=== PATIENT | male | born 1990 | race Two or more races ===

== ENCOUNTER 2017-01-13 22:15 | Emergency (ER) | payer OTHER ==
[2017-01-14 01:17] VITALS: BP 128/65
== END 2017-01-14 01:00 | disposition home or self-care (01) ==
LOC: ED 22:15
DX: R07.89 Other chest pain (principal); R05 Cough; F41.9 Anxiety disorder, unspecified; F32.9 Major depressive disorder, single episode, unspecified; K21.9 Gastro-esophageal reflux disease without esophagitis

== ENCOUNTER 2018-06-27 14:59 | Inpatient (IN) | payer OTHER ==
[~2018-06-27] VITALS: Ht 182.9 cm; Wt 77.1 kg
--- NOTE | 2018-06-27 15:24 | NUR ---
PT WAS BROUGHT IN BY AMBULANCE. C/O OVERDOSE AND ALOC. MEDIC WAS TOLD THAT THE PT IS GOING THROUGH A DIVORCE AND THAT HE IS NOT DEALING WITH IT WELL. THE PT WAS SUPPOSE TO GO TO A COURT DATE TODAY BUT WAS NOT INFORMED OF THE COURT DATE. SINCE THE PT DID NOT SHOW FOR THE COURT DATE THEY WERE TOLD HE LOST HIS CHILDREN. MEDIC ALSO WAS INFORMED THAT HE IS A VET. MEDIC STS THAT THE PT VOMITED GREEN LIQUID AND IT HAD PILL FRAGMENTS IN THE EMESIS. PT OBEYS COMMANDS WHEN TOLD TO MOVE CERTAIN BODY PARTS. PT WAS ABLE TO VERBALLY STATE THAT HE TOOK HYDROCODONE AND SIMBALTA. PT IS LAYING ON GURNEY WITH EYES CLOSED, MOUTH OPEN AND RESP E/U. VSS. WILL CONTINUE TO MONITOR.
[2018-06-27 15:46] LABS: BASOPHIL % 0.4 % (0-2); PLATELET COUNT 209 x10^3mcL (130-400)
[2018-06-27 15:48] LABS: CALCIUM 8.5 mg/dL (8.5-10.1); CARBON DIOXIDE 25.2 mmol/L (21-32); CHLORIDE SERUM 101 mmol/L (98-107); GFR1 > 60 mL/min; GLUCOSE SERUM 151 mg/dL (74-106); POTASSIUM SERUM 3.5 mmol/L (3.5-5.1); SODIUM SERUM 138 mmol/L (136-145)
[2018-06-27 16:00] LABS: ALBUMIN 3.8 g/dL (3.4-5.0); ALKALINE PHOSPHATASE 85 U/L (46-116); ALT/SGPT 64 U/L (16-63); AST/SGOT 68 U/L (15-37); BILIRUBIN TOTAL 0.46 mg/dL (0.20-1.00); T4(THYROXINE) 8.3 ug/dL (4.7-13.3); TOTAL PROTEIN, SERUM 7.1 g/dL (6.4-8.2)
--- NOTE | 2018-06-27 16:13 | NUR ---
PT SLEEPING ON GURNEY IN UPRIGHT POSITION. VSS. RESPS E/U. PT IN DIRECT VIEW OF NURSES' STATION.
--- NOTE | 2018-06-27 16:37 | NUR ---
PT ASLEEP ON GURNEY. PT RESPONDS TO VERBAL COMMANDS. VSS. WILL CONTINUE TO MONITOR.
--- NOTE | 2018-06-27 16:52 | NUR ---
PT WAS AROUSABLE WITH STERNAL RUB AND THEN VERBAL STIMULATION. PT WAS INSTRUCTED TO USE THE URNAL AND WAS ATTEMPTING TO USE THE RESTROOM. PT WAS UNABLE AT THIS TIME TO PRODUCE URINE. PT WAS SPEAKING WITH SLOW SPEECH BUT ABLE TO GUERO COMMANDS. VSS. WILL CONTINUE TO MONITOR.
--- NOTE | 2018-06-27 17:52 | NUR ---
DR. HORVATH MADE AWARE OF DECREASE IN BP READING. 1L NS @150MLS/HR MAINTENANCE FLUID VERBALLY ORDERED BY DR. HORVATH.
--- NOTE | 2018-06-27 18:17 | NUR ---
1L NS CURRENTLY INFUSING AT BOLUS RATE INSTEAD OF MAINTENANCE RATE ORDERED BY DR. HORVATH.
[2018-06-27 18:31] LABS: CHOLESTEROL/HDL RATIO 4.7
--- NOTE | 2018-06-27 18:33 | NUR ---
PCXR IN PROGRESS.
--- NOTE | 2018-06-27 18:41 | NUR ---
SPOKE W/GÉNESIS FROM POISON CONTROL AND SHE RECOMMENDED PT BE PLACED ON MUCOMIST UNTIL TYLENOL AND AST/ALT LEVELS RETURN TO NORMAL RANGE. SHE ALSO RECOMMENDED REPEAT EKG AND IF QTC LEVELS ARE ABOVE 500, TO HAVE MAGNESIUM ADMINISTERED. SINCE THERE IS NO TIME OF INGESTED GIVEN BY MEDICS OR PT'S PARENTS, PT IS TO CONTINUE BEING MONITORED W/ROLL WINDER AND SYMPTOMS TREATED PRN. DR. HORVATH MADE AWARE.
--- NOTE | 2018-06-27 18:50 | NUR ---
REPORT GIVEN TO RAJ TYLER TO ASSUME CARE OF PT.
--- NOTE | 2018-06-27 18:52 | NUR ---
SPOKE TO DR. CAPUTO. MADE AWARE OF POISON CONTROL'S RECOMMENDATIONS.
--- NOTE | 2018-06-27 18:58 | NUR ---
RECEIVED PT VIA GUERNEY FROM E/D, ACCOMPANIED BY RN AND TRANSPORTER. PT LETHARGIC, RESPONDS TO PAINFUL STIMULI ONLY, UNABLE TO GIVE HISTORY, TOTALLY DEPENDENT AT THIS TIME. ON TELE # 7, NSR, NO S/S CHEST PAIN OR DISCOMFORT. NO RESPIRATORY DISTRESS NOTED. UTD LAST BM. IV SITE LAC 18, CDI. UNABLE TO ORIENT PT ON ANYTHING. SIDE RAILS UP X 2, BED IN LOW POSITION, SITTER BY BEDSIDE. WILL ENDORSE TO RAJ VALERO.
--- NOTE | 2018-06-27 19:09 | NUR ---
ARRIVED FROM ED AT 1857. EYES CLOSED, STARTLES AND MUMBLES TO PAINFUL STIMULI. IV SITE TO LAC PATENT, CDI. NO SIGNS OF DISCOMFORT. NO FAMILY PRESENT. 1:1 SITTER IN ROOM. VS'S STABLE. TEMP 97, HR 78, RR 20, BP 102/70, O2 SAT ON RA 97%. TELE # 7 SR 70.
--- NOTE | 2018-06-27 19:45 | NUR ---
PT IS SEDATED AND FLACID. PT OPENS DIANNA EYES WITH STERNAL RUB BUT IMMEDIATELY CLOSES THEM. ON TELE #7, NSR. FLACID EXTREMITIES. PULSES PRESENT IN ALL EXTREMITIES. LUNGS CLEAR IN ALL FEILDS. ON RA, EQUAL CHEST RISE AND FALL. NO SIGN OF RESP DISTRESS. SKIN WARM AND INTACT. IV ON LAC, INTACT AND PATENT. BED AT LOWEST SETTING. SITTER AT BEDSIDE. SIDE RAILS UP x2 FOR PT SAFETY. WILL CONTINUE TO MONITOR.
--- NOTE | 2018-06-27 20:10 | NUR ---
CALL PHARMACY TO CONFIRM ACETADOTE SCHEDULES AND DOSE. CONSULTED AM CHARGE NURSE AND PM CHARGE NURSE. PHARM BOOK WAS ALSO READ TO CONFIRM OK TO HANG MEDICATION. ALL CHECKED WELL. MEDICATION BROUGHT UP WITH GENERAL OPERATOR. MEDICATION HUNG PER EMAR. CALLED MD GALLEGOS ABOUT CHANGING PT DIET FROM REG TO NPO D/T PT BEING SEDATED. PT TO INPUT ORDERS. WILL CONTINUE TO [facility].
[2018-06-27 20:32] VITALS: BP 102/70
--- NOTE | 2018-06-27 22:23 | NUR ---
SPOKE WITH MD GALLEGOS REGARDING FLUIDS AND IV MEDICATION. PER MD WILL HOLD FLUIDS FOR NOW UNTIL IV MEDICATION IS COMPLETED.
[2018-06-27 22:31] VITALS: BP 98/51
--- NOTE | 2018-06-28 01:31 | NUR ---
PT RESTING IN BED. MORE ACTIVE THAN HE WAS WHEN HE WAS ADMITTED. STILL VERY SLEEPY BUT GRUNTS WITH TACTILE STIMULI. PT WITHDRAWLS FROM TOUCH AND COVERS HIS FACE WITH A BLANKET. STILL HAS NOT SPOKEN A WORD. FULL ROM ON BUE NOTED. BED AT LOWEST SETTING. CALL LIGHT WITHIN REACH. SITTER IN ROOM. WILL CONTINUE TO MONITOR.
[2018-06-28 06:06] VITALS: BP 92/49
[2018-06-28 06:15] LABS: BASOPHIL % 0.6 % (0-2); PLATELET COUNT 195 x10^3mcL (130-400); RED CELL DISTRIBUTION WIDTH 14.5 % (11.5-14.5)
[2018-06-28 06:30] LABS: CALCIUM 8.9 mg/dL (8.5-10.1); CARBON DIOXIDE 26.4 mmol/L (21-32); CHLORIDE SERUM 103 mmol/L (98-107); CREATININE SERUM 0.8 mg/dL (0.7-1.3); GFR1 > 60 mL/min; GLUCOSE SERUM 107 mg/dL (74-106); POTASSIUM SERUM 3.6 mmol/L (3.5-5.1); SODIUM SERUM 139 mmol/L (136-145)
--- NOTE | 2018-06-28 06:50 | NUR ---
PT IS RESTING IN BED WITH BOTH EYES CLOSED. BREATHING EVEN AND UNALBORED. PT IS STILL VERY DROWSY AND IS ABLE TO BE AROUSED VIA TACTILE STIMULI. PT UNABLE TO FOLLOW COMMANDS AT THIS TIME. ACETADOTE RUNNING AT 65ML. IV SITE CDI. MD GALLEGOS MADE AWARE OF LABS REQUESTED BY POISON CONTROL AND ALSO INFORMED MD ABOUT LOW B/P (). MD TO ORDER LABS AND NO NEW ORDERS GIVEN FOR FOR LOW B/P. SITTER AT BEDSIDE. NO ACUTE EVENT OCCURED AT NIGHT. BED AT LOWEST SETTING. CALL LIGHT WITHIN REACH. WILL ENDORSE TO AM NURSE.
--- NOTE | 2018-06-28 07:30 | NUR ---
RECEIVED PT IN NO ACUTE DISTRESS. SLEEPING, AROUSABLE BY TACTILE STIMULUS. RESP EVEN AND UNLABORED ON RA. IV TO LAC, NO REDNESS OR SWELLING NOTED. ACETADOTE INFUSING AT 65 ML/HR. 1:1 SITTER AT BEDSIDE. SAFETY, FALL AND ASPIRATION PRECAUTIONS IN PLACE. BED IN LOW POSITION, CALL LIGHT WITHIN REACH. WILL CONTINUE TO MONITOR.
[2018-06-28 08:31] VITALS: BP 102/49
--- NOTE | 2018-06-28 08:38 | NUR ---
PT'S MOTHER AT BEDSIDE, UPDATED WITH PLAN OF CARE. PT AROUSABLE TO TACTILE STIMULUS AND GESTURES TO MAKE NEEDS KNOWN AT THIS TIME. 1:1 SITTER AT BEDSIDE. WILL CONTINUE TO MONITOR.
[2018-06-28 09:56] VITALS: Ht 182.9 cm; Wt 77.1 kg
--- NOTE | 2018-06-28 12:23 | NUR ---
PT RESTING IN BED. NO ACUTE DISTRESS. BREATHING EVEN AND UNLABORED ON RA. DROWSY BUT AROUSABLE TO TACTILE STIMULUS. 1:1 SITTER AT BEDSIDE. CALL LIGHT WITHIN REACH. WILL CONTINUE TO MONITOR.
[2018-06-28 12:42] VITALS: BP 105/67
--- NOTE | 2018-06-28 12:53 | NUR ---
SPOKE WITH CRYSTAL FROM POISON CONTROL. CRYSTAL GAVE RECOMMENDATION TO DRAW HEPATIC FUNCTION PROFILE AND ACETAMINOPHEN LEVELS 1 HOUR PRIOR TO ACETADOTE IV INFUSION IS FINISHED AND REPEAT EKG. CRYSTAL ALSO STATED IF ACETAMINOPHEN LEVELS REMAIN ABOVE 10 OR IF LFT'S WORSEN, ANOTHER DOSE OF ACETADOTE IV RUNNING FOR 16 HRS IS NEEDED[address] WILL NOTIFY DR. SANTOS.
[2018-06-28 13:23] LABS: microscopic required? NO
[2018-06-28 13:50] LABS: AMPHETAMINE QUAL UR NONE DETECTED (See below)
[2018-06-28 13:54] LABS: UA SPECIFIC GRAVITY >=1.030 (1.005-1.035); urine erythrocyte NEGATIVE (NEGATIVE)
--- NOTE | 2018-06-28 14:13 | NUR ---
PT RESTING IN BED. NO ACUTE DISTRESS. PT MORE AWAKE, RESPONDS TO VERBAL STIMULUS. TALKING ON THE PHONE WITH FAMILY MEMBERS AT THIS TIME. 1:1 SITTER AT BEDSIDE. CALL LIGHT WITHIN REACH. WILL CONTINUE TO MONITOR.
[2018-06-28 16:41] VITALS: BP 97/58
[2018-06-28 18:23] LABS: BILIRUBIN DIRECT 0.1 mg/dL (0.0-0.2); BILIRUBIN TOTAL 0.3 mg/dL (0.20-1.00)
--- NOTE | 2018-06-28 18:24 | NUR ---
PT RESTING IN BED. NO ACUTE DISTRESS. SLEEPING BUT AROUSABLE. RESP EVEN AND UNLABORED ON RA. 1:1 SITTER AT BEDSIDE. FAMILY AT BEDSIDE. IVF INFUSING, NO REDNESS OR SWELLING NOTED. BED IN LOW POSITION, CALL LIGHT WITHIN REACH. WILL ENDORSE TO ONCOMING SHIFT.
[2018-06-28 18:27] LABS: ALBUMIN 2.8 g/dL (3.4-5.0); TOTAL PROTEIN, SERUM 5.7 g/dL (6.4-8.2)
--- NOTE | 2018-06-28 18:43 | NUR ---
PT SITTING UP IN BED EATING DINNER. NO ACUTE DISTRESS. DENIES SUICIDAL IDEATIONS AT THIS TIME. FAMILY AT BEDSIDE. 1:1 SITTER AT BEDSIDE. CALL LIGHT WITHIN REACH. WILL ENDORSE TO ONCOMING SHIFT.
--- NOTE | 2018-06-28 20:00 | NUR ---
RECEIVED PT IN BED WITH FAMILY AND SITTER AT BEDSIDE FOR PT SAFETY. PT IS AAOX4. SPEECH CLEAR. LUNG SOUNDS CLEAR. BREATHING EASILY ON ROOM AIR. TELE 7 SHOWS NSR. NO CHEST PAIN NOTED. VOIDING FREELY, BRP. IVF INFUSING NS AT 100ML/HR TO LAC. SHIFT ASSESSMENT COMPLETED. CALL LIGHT WITHIN REACH. BED IS IN LOWEST POSITION. WILL CONTINUE TO MONITOR CLOSELY.
[2018-06-28 21:21] VITALS: BP 106/62
--- NOTE | 2018-06-29 | NUR ---
PT APPEARS TO BE SLEEPING IN INTERVALS. SITTER AT BEDSIDE. IVF ONGOING. CALL LIGHT WITHIN REACH. BED IS IN LOWEST POSITION. WILL CONTINUE TO MONITOR CLOSELY.
[2018-06-29 05:30] VITALS: BP 112/73
[2018-06-29 06:16] LABS: BASOPHIL % 0.3 % (0-2); PLATELET COUNT 187 x10^3mcL (130-400); RED CELL DISTRIBUTION WIDTH 14.1 % (11.5-14.5)
--- NOTE | 2018-06-29 06:20 | NUR ---
PT SLEPT IN INTERVALS THROUGH OUT THE NIGHT. NO DISTRESS NOTED. IVF ONGOING. CALL LIGHT WITHIN REACH. SITTER REMAINS AT BEDSIDE. WILL CONTINUE TO MONITOR CLOSELY.
[2018-06-29 06:37] LABS: CALCIUM 8.8 mg/dL (8.5-10.1); CARBON DIOXIDE 27.6 mmol/L (21-32); CHLORIDE SERUM 107 mmol/L (98-107); CREATININE SERUM 0.7 mg/dL (0.7-1.3); GFR1 > 60 mL/min; GLUCOSE SERUM 81 mg/dL (74-106); POTASSIUM SERUM 4.4 mmol/L (3.5-5.1); SODIUM SERUM 142 mmol/L (136-145)
--- NOTE | 2018-06-29 07:20 | NUR ---
RECEIVED PT FROM NIGHT NURSE. PT IS LAYING DOWN IN BED. RESPIRATIONS ARE EVEN AND UNLABORED. PT LOOKS TO BE IN NO ACUTE DISTRESS AT THIS TIME. PT FLUIDS INFUSING TO LEFT FOREARM. BED IN LOWEST POSTION. CALL LIGHT WITHIN REACH. WILL CONITNUE TO [facility].
[2018-06-29 08:48] VITALS: BP 119/61
--- NOTE | 2018-06-29 10:00 | NUR ---
PT LAYING DOWN IN BED WITH HOB UP. FAMILY MEMBER AT SPEAKING WITH PT. PT WANTS TO GO HOME TO PREPARE FOR COURT AND IS ASKING FOR HIS HOLD TO BE REMOVED. PT INFORMED ME OF HIS HOME MEDICATION. PT SEEMS A LITTLE AGITATED AT BEING IN THE HOSPITAL AND STATES THAT HE WANTS TO GO HOME BUT PT IS COOPERATIVE. IV FLUIDS INFUSING. CALL LIGHT WITHIN REACH. WILL CONTINUE TO MONTIOR.
--- NOTE | 2018-06-29 12:30 | NUR ---
PT IS SITTING IN BED AND IS AGITATED. PT ASKED WHERE HIS BELONGINGS ARE BECAUSE HE IS GOING TO LEAVE. PT CHANGED AND IS READY TO WALK OUT. PT EDUCATED ON 5150 AND SECURITY WAS CALLED. PT REMOVED TELE MONITOR AND IV, CATHETER INTACT, GAUZE AND TAPE WAS PROVIDED. TELE CHILANGO WAS RETURNED TO TELE STATION. PT HAS BEEN ASKED TO STAY HERE UNTIL THE PSYCHIATRIST CAN TALK WITH HIM. PT HAS AGREED TO STAY IN THE HALLWAY UNITL PSYCHIATRIST COMES TO TALK WITH HIM. PT IS NOW TALKING IN THE HALLWAY WITH SECURITY BUT STILL SEEMS AGITATED. DR. GALLEGOS NOTIFIED AND AWARE PT REFUSED TO TAKE ATIVAN. WILL CONTINUE TO [facility].
--- NOTE | 2018-06-29 12:56 | NUR ---
PT APPEARS MORE CALM, TALKED TO SHUTTLE BUS DRIVER OUTSIDE OF ROOM AND NOW BACK IN BED. NO ACUTE DISTRESS. VISITORS AT BEDSIDE TALKING WITH PT. 1:1 SITTER. CALL LIGHT WITHIN REACH. WILL CONTINUE TO MONITOR.
[2018-06-29 13:22] LABS: BILIRUBIN DIRECT 0.12 mg/dL (0.0-0.2); BILIRUBIN TOTAL 0.3 mg/dL (0.20-1.00)
[2018-06-29 13:28] LABS: ALBUMIN 3.1 g/dL (3.4-5.0); TOTAL PROTEIN, SERUM 5.9 g/dL (6.4-8.2)
--- NOTE | 2018-06-29 14:41 | NUR ---
NEW IV STARTED ON RFA 22G, FLUSHED WITH 10 ML NS. WILL CONTINUE TO MONITOR.
--- NOTE | 2018-06-29 18:48 | NUR ---
PT SITTING UP IN BED. FAMILY MEMBER AT BEDSIDE TALKING WITH PT. PT WAITING TO TALK WITH PSYCHIATRIST. PT AGITATED AT TIMES. WALKS UP TO NURSING STATION DEMANDING TO TALK WITH PSYCHIATRIST. NOW BACK IN BED TALKING WITH PT'S BROTHER. PT LOOKS TO BE IN NO ACUTE DISTRESS AT THIS TIME. WILL ENDORSE TO ONCOMING SHIFT. NO IV ACCESS, PT REFUSED. 1:1 SITTER AT BEDSIDE.
--- NOTE | 2018-06-29 19:35 | NUR ---
PT WAS AGITATED AND WALKED TO THE STATION. PT'S BROTHER WITH PT, TRYING TO CALM PT DOWN. PT STANDING IN NURSES STATION AT THIS TIME.
--- NOTE | 2018-06-29 19:40 | NUR ---
DR. BUSTOS INFORMED PT AT NURSES STATION, UPSET.
--- NOTE | 2018-06-29 19:48 | NUR ---
DR. BUSTOS TALKING TO PATIENT AND PT'S PARENTS. PT IN ROOM AT THIS TIME.
--- NOTE | 2018-06-29 20:05 | NUR ---
DR. BALDWINREES HERE TO SEE THE PT. PT IN HIS ROOM.
--- NOTE | 2018-06-29 20:06 | NUR ---
PT'S PARENTS AND BROTHER LEFT EARLIER.
--- NOTE | 2018-06-29 20:21 | NUR ---
DR. CERNA HAS SEEN PT, DR. CERNA STATED PT OK TO DISCHARGE BACK TO HOME. DR. BUSTOS AWARE, STATED WRITING DISCHARGE ORDERS. CALLED PT'S MOTHER, INFORMED HER PT HAS BEEN CLEARED TO DISCHARGE BACK TO HOME. SHE STATED THEY WILL COME IN ABOUT 1 HOUR.
--- NOTE | 2018-06-29 20:38 | NUR ---
DISCHARGE INSTRUCTIONS PROVIDED. PT VERBALIZED UNDERSTANDING INCLUDING NEED TO SET UP APPOINTMENT WITH PRIMARY PHYSICIAN ON DISCHARGE. PT AWAKE AND ALERT, AWARE HIS PARENTS COMING TO PICK HIM UP IN 1 HOUR. PT HAS NOT TELE. NO IV. PT CALM AND COOPERATIVE.
--- NOTE | 2018-06-29 21:24 | NUR ---
MOTHER CAME TO BRING PT HOME. PT AWAKE AND ALERT. BREATHING EVEN AND UNLABORED. PT CALM AND COOPERATIVE.
== END 2018-06-29 21:35 | disposition home or self-care (01) | DRG 917 ==
LOC: ED 14:59 → DU 18:15
PROVIDERS: Emergency Medicine; Internal Medicine; ADMIT Family Medicine
DX: T42.6X2A Poisoning by other antiepileptic and sedative-hypnotic drugs, intentional self-harm, initial encounter (principal); G92 Toxic encephalopathy; R41.82 Altered mental status, unspecified; T14.91XA Suicide attempt, initial encounter; R74.0 Nonspecific elevation of levels of transaminase and lactic acid dehydrogenase [LDH]; E78.5 Hyperlipidemia, unspecified; F12.10 Cannabis abuse, uncomplicated; Y93.9 Activity, unspecified; Y92.018 Other place in single-family (private) house as the place of occurrence of the external cause
CPT/HCPCS: G0480; J0132; J2060; J7030; Q0092

== ENCOUNTER 2019-06-19 20:22 | Emergency (ER) | payer OTHER ==
[~2019-06-19] VITALS: Ht 182.9 cm; Wt 81.6 kg
[2019-06-19 20:44] VITALS: Ht 182.9 cm; Wt 81.6 kg
[2019-06-20 00:59] LABS: CALCIUM 9.1 mg/dL (8.5-10.1); CHLORIDE SERUM 104 mmol/L (98-107); GFR1 > 60 mL/min; GLUCOSE SERUM 102 mg/dL (74-106); POTASSIUM SERUM 3.8 mmol/L (3.5-5.1); SODIUM SERUM 142 mmol/L (136-145)
[2019-06-20 01:02] LABS: BASOPHIL % 1.1 % (0-2); PLATELET COUNT 249 x10^3mcL (130-400)
[2019-06-20 01:03] LABS: ALKALINE PHOSPHATASE 68 U/L (46-116); ALT/SGPT 18 U/L (16-63); AST/SGOT 33 U/L (15-37); BILIRUBIN TOTAL 0.8 mg/dL (0.20-1.00); RED CELL DISTRIBUTION WIDTH 16.1 % (11.5-14.5); TOTAL PROTEIN, SERUM 7.1 g/dL (6.4-8.2)
[2019-06-20 02:35] VITALS: BP 101/62
== END 2019-06-20 02:35 | disposition home or self-care (01) ==
LOC: ED 20:22
PROVIDERS: Specialist
DX: S80.212A Abrasion, left knee, initial encounter (principal); S80.211A Abrasion, right knee, initial encounter; S80.812A Abrasion, left lower leg, initial encounter; G89.29 Other chronic pain; K21.9 Gastro-esophageal reflux disease without esophagitis; X58.XXXA Exposure to other specified factors, initial encounter; Y93.89 Activity, other specified; Y92.89 Other specified places as the place of occurrence of the external cause; Y99.8 Other external cause status
CPT/HCPCS: 36415; 87804; G0480; Q0092

== ENCOUNTER 2019-10-03 10:14 | Emergency (ER) | payer OTHER ==
[~2019-10-03] VITALS: Ht 182.9 cm; Wt 90.7 kg
[2019-10-03 10:23] VITALS: BP 109/76; Ht 182.9 cm; Wt 90.7 kg
[2019-10-03 11:09] LABS: CALCIUM 9.7 mg/dL (8.5-10.1); CARBON DIOXIDE 28.1 mmol/L (21-32); CHLORIDE SERUM 102 mmol/L (98-107); CREATININE SERUM 1.2 mg/dL (0.7-1.3); GFR1 > 60 mL/min; GLUCOSE SERUM 93 mg/dL (74-106); POTASSIUM SERUM 4.6 mmol/L (3.5-5.1); SODIUM SERUM 139 mmol/L (136-145)
[2019-10-03 11:13] LABS: ALBUMIN 4.2 g/dL (3.4-5.0); ALKALINE PHOSPHATASE 59 U/L (46-116); ALT/SGPT 22 U/L (16-63); AST/SGOT 19 U/L (15-37); BILIRUBIN TOTAL 0.7 mg/dL (0.20-1.00); TOTAL PROTEIN, SERUM 8.1 g/dL (6.4-8.2)
[2019-10-03 11:21] LABS: BASOPHIL % 0.1 % (0-2); PLATELET COUNT 235 x10^3mcL (130-400)
[2019-10-03 11:23] LABS: RED CELL DISTRIBUTION WIDTH 15.7 % (11.5-14.5)
[2019-10-03 11:51] LABS: UA SPECIFIC GRAVITY 1.025 (1.005-1.035); microscopic required? YES; urine erythrocyte NEGATIVE (NEGATIVE)
[2019-10-03 12:01] LABS: AMPHETAMINE QUAL UR POSITIVE (See below)
== END 2019-10-03 12:56 | disposition home or self-care (01) ==
LOC: ED 10:14
PROVIDERS: Emergency Medicine
DX: F43.10 Post-traumatic stress disorder, unspecified (principal); F17.210 Nicotine dependence, cigarettes, uncomplicated; K21.9 Gastro-esophageal reflux disease without esophagitis; Z98.890 Other specified postprocedural states
CPT/HCPCS: 36415; 99406; G0480

== ENCOUNTER 2020-01-27 04:45 | Emergency (ER) | payer OTHER ==
[~2020-01-27] VITALS: Ht 182.9 cm; Wt 90.7 kg
[2020-01-27 04:49] VITALS: Ht 182.9 cm; Wt 90.7 kg
[2020-01-27 07:14] LABS: BASOPHIL % 0.5 % (0-2); PLATELET COUNT 241 x10^3mcL (130-400); RED CELL DISTRIBUTION WIDTH 14.5 % (11.5-14.5)
[2020-01-27 07:24] LABS: CHLORIDE SERUM 99 mmol/L (98-107); POTASSIUM SERUM 4.1 mmol/L (3.5-5.1); SODIUM SERUM 136 mmol/L (136-145)
[2020-01-27 07:31] LABS: CARBON DIOXIDE 27.4 mmol/L (21-32); CREATININE SERUM 1.1 mg/dL (0.7-1.3); GFR1 > 60 mL/min; GLUCOSE SERUM 95 mg/dL (74-106)
[2020-01-27 07:46] LABS: ALBUMIN 4.5 g/dL (3.4-5.0); ALKALINE PHOSPHATASE 65 U/L (46-116); AST/SGOT 69 U/L (15-37); BILIRUBIN TOTAL 1.05 mg/dL (0.20-1.00); CHOLESTEROL 223 mg/dL (<200); HDL CHOLESTEROL 47 mg/dL (40-60); TOTAL PROTEIN, SERUM 8.3 g/dL (6.4-8.2)
[2020-01-27 08:03] LABS: ALT/SGPT 47 U/L (16-63); LIPASE 72 IU/L (73-393)
[2020-01-27 08:17] LABS: microscopic required? NO
[2020-01-27 08:26] LABS: UA SPECIFIC GRAVITY 1.025 (1.005-1.035); urine erythrocyte NEGATIVE (NEGATIVE)
[2020-01-27 09:17] LABS: AMPHETAMINE QUAL UR POSITIVE (See below)
[2020-01-28 12:01] LABS: AMPHETAMINE QUAL UR POSITIVE (See below)
--- NOTE | 2020-01-29 05:41 | NUR ---
Intake information was refaxed out to [facility] / Isaiah Mendieta Will endorse to AM shift to continue assisting with placement
[2020-01-30 13:46] VITALS: BP 124/91
== END 2020-01-30 13:46 | disposition left against medical advice (07) ==
LOC: ED 04:45
PROVIDERS: Emergency Medicine
DX: F29 Unspecified psychosis not due to a substance or known physiological condition (principal); R07.89 Other chest pain; F12.20 Cannabis dependence, uncomplicated; F17.210 Nicotine dependence, cigarettes, uncomplicated; K21.9 Gastro-esophageal reflux disease without esophagitis; F15.10 Other stimulant abuse, uncomplicated; Z20.828 Contact with and (suspected) exposure to other viral communicable diseases
CPT/HCPCS: 83880; 87491; 87591; 99406; G0480; Q0092; U0003-CS

== ENCOUNTER 2020-02-09 22:34 | Emergency (ER) | payer OTHER ==
[~2020-02-09] VITALS: Ht 180.3 cm; Wt 95.3 kg
[2020-02-09 22:40] VITALS: Ht 180.3 cm; Wt 95.3 kg
[2020-02-09 23:05] LABS: BASOPHIL % 0.7 % (0-2); PLATELET COUNT 241 x10^3mcL (130-400); RED CELL DISTRIBUTION WIDTH 14.4 % (11.5-14.5)
[2020-02-09 23:17] LABS: CALCIUM 9.2 mg/dL (8.5-10.1); CARBON DIOXIDE 25.8 mmol/L (21-32); CHLORIDE SERUM 103 mmol/L (98-107); CREATININE SERUM 1.1 mg/dL (0.7-1.3); GFR1 > 60 mL/min; GLUCOSE SERUM 91 mg/dL (74-106); SODIUM SERUM 144 mmol/L (136-145)
[2020-02-09 23:22] LABS: ALBUMIN 4.2 g/dL (3.4-5.0); ALKALINE PHOSPHATASE 63 U/L (46-116); ALT/SGPT 21 U/L (16-63); AST/SGOT 19 U/L (15-37); BILIRUBIN TOTAL 0.65 mg/dL (0.20-1.00); TOTAL PROTEIN, SERUM 7.6 g/dL (6.4-8.2)
[2020-02-10 01:31] VITALS: BP 135/100
== END 2020-02-10 01:31 | disposition home or self-care (01) ==
LOC: ED 22:34
PROVIDERS: Emergency Medicine
DX: F19.10 Other psychoactive substance abuse, uncomplicated (principal); R07.89 Other chest pain
CPT/HCPCS: Q0092

== ENCOUNTER 2020-03-05 13:27 | Emergency (ER) | payer OTHER ==
[~2020-03-05] VITALS: Ht 180.3 cm; Wt 90.7 kg
[2020-03-05 13:32] VITALS: Ht 180.3 cm; Wt 90.7 kg
[2020-03-05 15:05] LABS: BASOPHIL % 0.4 % (0-2)
[2020-03-05 15:13] LABS: CALCIUM 9.9 mg/dL (8.5-10.1); CARBON DIOXIDE 26.9 mmol/L (21-32); CHLORIDE SERUM 96 mmol/L (98-107); CREATININE SERUM 1.2 mg/dL (0.7-1.3); GFR1 > 60 mL/min; GLUCOSE SERUM 92 mg/dL (74-106); POTASSIUM SERUM 3.9 mmol/L (3.5-5.1); SODIUM SERUM 132 mmol/L (136-145)
[2020-03-05 15:17] LABS: ALBUMIN 4.9 g/dL (3.4-5.0); ALKALINE PHOSPHATASE 66 U/L (46-116); ALT/SGPT 14 U/L (16-63); AST/SGOT 13 U/L (15-37); PLATELET COUNT 252 x10^3mcL (130-400)
[2020-03-05 15:20] LABS: TOTAL PROTEIN, SERUM 8.5 g/dL (6.4-8.2)
[2020-03-05 15:41] VITALS: BP 147/113
== END 2020-03-05 15:42 | disposition other institution (70) ==
LOC: ED 13:27
PROVIDERS: Student in an Organized Health Care Education/Training Program
DX: R07.89 Other chest pain (principal); F15.10 Other stimulant abuse, uncomplicated; K21.9 Gastro-esophageal reflux disease without esophagitis; F14.10 Cocaine abuse, uncomplicated

== ENCOUNTER 2020-03-05 13:27 | Emergency (ER) | payer OTHER | END 2020-03-05 15:42 | disposition other institution (70) | LOC: ED 13:27 | DX: Z02.89 Encounter for other administrative examinations (principal) ==

== ENCOUNTER 2020-03-13 23:30 | Emergency (ER) | payer OTHER ==
[~2020-03-13] VITALS: Ht 180.3 cm; Wt 81.6 kg
[2020-03-13 23:37] VITALS: Ht 180.3 cm; Wt 81.6 kg
[2020-03-14 05:29] VITALS: BP 130/80
== END 2020-03-14 05:29 | disposition home or self-care (01) ==
LOC: ED 23:30
DX: T43.625A Adverse effect of amphetamines, initial encounter (principal); Y92.89 Other specified places as the place of occurrence of the external cause; K21.9 Gastro-esophageal reflux disease without esophagitis; F14.10 Cocaine abuse, uncomplicated
CPT/HCPCS: J7030

== ENCOUNTER 2020-03-17 17:58 | Emergency (ER) | payer OTHER ==
[~2020-03-17] VITALS: Ht 180.3 cm; Wt 81.6 kg
[2020-03-17 18:03] VITALS: Ht 180.3 cm; Wt 81.6 kg
[2020-03-17 18:42] LABS: BASOPHIL % 0.4 % (0-2); PLATELET COUNT 261 x10^3mcL (130-400); RED CELL DISTRIBUTION WIDTH 13.9 % (11.5-14.5)
[2020-03-17 18:59] LABS: CALCIUM 9.5 mg/dL (8.5-10.1); CHLORIDE SERUM 103 mmol/L (98-107); CREATININE SERUM 1.2 mg/dL (0.7-1.3); GFR1 > 60 mL/min; GLUCOSE SERUM 88 mg/dL (74-106); POTASSIUM SERUM 3.5 mmol/L (3.5-5.1); SODIUM SERUM 139 mmol/L (136-145)
[2020-03-17 19:03] LABS: ALBUMIN 4.3 g/dL (3.4-5.0); ALKALINE PHOSPHATASE 58 U/L (46-116); ALT/SGPT 20 U/L (16-63); AST/SGOT 17 U/L (15-37); BILIRUBIN TOTAL 0.8 mg/dL (0.20-1.00); TOTAL PROTEIN, SERUM 7.3 g/dL (6.4-8.2)
[2020-03-17 19:46] LABS: AMPHETAMINE QUAL UR POSITIVE (See below)
[2020-03-17 21:15] VITALS: BP 136/78
== END 2020-03-17 21:15 | disposition home or self-care (01) ==
LOC: ED 17:58
PROVIDERS: Emergency Medicine
DX: R07.89 Other chest pain (principal); F15.10 Other stimulant abuse, uncomplicated; K21.9 Gastro-esophageal reflux disease without esophagitis; F11.10 Opioid abuse, uncomplicated
CPT/HCPCS: G0480; J7030

== ENCOUNTER 2020-03-27 19:34 | Emergency (ER) | payer OTHER ==
[~2020-03-27] VITALS: Ht 167.6 cm; Wt 72.6 kg
[2020-03-27 20:01] VITALS: Ht 167.6 cm; Wt 72.6 kg
[2020-03-27 21:29] VITALS: BP 139/104
== END 2020-03-27 21:29 | disposition home or self-care (01) ==
LOC: ED 19:34
DX: F15.10 Other stimulant abuse, uncomplicated (principal); K21.9 Gastro-esophageal reflux disease without esophagitis; F14.10 Cocaine abuse, uncomplicated; F99 Mental disorder, not otherwise specified

== ENCOUNTER 2020-05-24 02:04 | Emergency (ER) | payer OTHER ==
[~2020-05-24] VITALS: Ht 182.9 cm; Wt 92.1 kg
[2020-05-24 02:31] VITALS: Ht 182.9 cm; Wt 92.1 kg
[2020-05-24 02:53] LABS: BASOPHIL % 0.7 % (0.2-1.5); PLATELET COUNT 269 x10^3mcL (152-348); RED CELL DISTRIBUTION WIDTH 13.8 % (12.1-16.2)
[2020-05-24 03:05] LABS: CALCIUM 9.5 mg/dL (8.5-10.1); CARBON DIOXIDE 28.9 mmol/L (21-32); CHLORIDE SERUM 95 mmol/L (98-107); CREATININE SERUM 0.9 mg/dL (0.7-1.3); GFR1 > 60 mL/min; GLUCOSE SERUM 84 mg/dL (74-106); POTASSIUM SERUM 3.4 mmol/L (3.5-5.1); SODIUM SERUM 133 mmol/L (136-145)
[2020-05-24 03:09] LABS: AMPHETAMINE QUAL UR POSITIVE (See below)
[2020-05-24 03:17] LABS: ALBUMIN 4.3 g/dL (3.4-5.0); ALKALINE PHOSPHATASE 79 U/L (46-116); ALT/SGPT 16 U/L (16-63); AST/SGOT 8 U/L (15-37); BILIRUBIN TOTAL 0.27 mg/dL (0.20-1.00); CHOLESTEROL 162 mg/dL (<200); CHOLESTEROL/HDL RATIO 3.5; HDL CHOLESTEROL 46 mg/dL (40-60); LIPASE 99 IU/L (73-393); TOTAL PROTEIN, SERUM 7.6 g/dL (6.4-8.2); TRIGLYCERIDES 137 mg/dL (<150)
[2020-05-24 03:34] VITALS: BP 134/95
== END 2020-05-24 05:04 | disposition left against medical advice (07) ==
LOC: ED 02:04
PROVIDERS: Specialist
DX: F41.9 Anxiety disorder, unspecified (principal); R07.89 Other chest pain; F15.10 Other stimulant abuse, uncomplicated
CPT/HCPCS: 83880; J1885

== ENCOUNTER 2020-06-01 12:09 | Emergency (ER) | payer OTHER ==
[~2020-06-01] VITALS: Ht 182.9 cm; Wt 90.7 kg
[2020-06-01 12:13] VITALS: BP 127/96; Ht 182.9 cm; Wt 90.7 kg
== END 2020-06-01 13:16 | disposition home or self-care (01) ==
LOC: ED 12:09
DX: F15.10 Other stimulant abuse, uncomplicated (principal); F12.10 Cannabis abuse, uncomplicated; F41.9 Anxiety disorder, unspecified; I10 Essential (primary) hypertension; K21.9 Gastro-esophageal reflux disease without esophagitis

== ENCOUNTER 2020-06-02 00:56 | Emergency (ER) | payer OTHER ==
[~2020-06-02] VITALS: Ht 182.9 cm; Wt 90.7 kg
[2020-06-02 06:36] VITALS: BP 116/85
== END 2020-06-02 06:36 | disposition home or self-care (01) ==
LOC: ED 00:56
DX: F15.10 Other stimulant abuse, uncomplicated (principal); F41.9 Anxiety disorder, unspecified; I10 Essential (primary) hypertension; K21.9 Gastro-esophageal reflux disease without esophagitis; F14.10 Cocaine abuse, uncomplicated